=== PATIENT | male | born 1975 | race Hispanic/Latino ===

== ENCOUNTER → 2019-01-18 | Outpatient (CLI) | payer OTHER ==
[~2019-01-18] MED LIST: ISOVUE-300 61% 100ML VIAL (Q9967) As Ordered ONE
--- NOTE | 2019-01-18 15:23 | REP ---
INTRAVENOUS UROGRAPHY: With nephrotomography. HISTORY: History of ureterolithiasis. FINDINGS: Preliminary digital drafter seismograph radiograph is unremarkable. Plain precontrast nephrotomography shows no evidence of intrarenal or upper tract calculus. No urinary tract calculus is visible. Bowel gas pattern is normal. Psoas margins and flank stripes are intact. Serial films including nephrotomography taken after the intravenous injection of contrast demonstrate no evidence of intrarenal mass on either side. There is no filling defect in the collecting systems or ureters. The ureters describe a normal course to the bladder. No bladder mass lesion is seen. Postvoid view shows complete emptying of the bladder. IMPRESSION: Normal intravenous urography. No urinary tract calculus is visible. CT scanning would be more sensitive for urinary tract calculi. There is no evidence of obstructive uropathy or mass. Electronically Signed by Joe Medina MD 01/18/2019 05:36 P
== END ==
LOC: M RAD 10:33
PROVIDERS: ATTEND Emergency Medicine
DX: Z87.442 Personal history of urinary calculi (principal)
CPT/HCPCS: 74400; Q9967

== ENCOUNTER 2022-08-30 12:49 | Day surgery (SDC) | payer OTHER ==
[~2022-08-30] VITALS: Ht 170.2 cm; Wt 91.2 kg
[~2022-08-30 12:49] MED LIST changes: -ISOVUE-300 61% 100ML VIAL (Q9967) As Ordered ONE; +NS 1,000 ML IV ONE
[2022-08-30] MEDS ORDERED: propofoL 200 MG/20 ML VIAL As Ordered ONE (13:50)
[2022-08-30] MEDS ORDERED: LIDOCAINE 2% INJ 100 MG/5 ML SYRINGE As Ordered ONE (13:51)
[2022-08-30 15:07] VITALS: BP 121/61
== END 2022-08-30 15:09 | disposition home or self-care (01) ==
LOC: M OPP 12:49
PROVIDERS: ATTEND Internal Medicine Gastroenterology
DX: Z12.11 Encounter for screening for malignant neoplasm of colon (principal); K64.0 First degree hemorrhoids; K57.30 Diverticulosis of large intestine without perforation or abscess without bleeding